=== PATIENT | male | born 1935 | race Caucasian/White ===

== ENCOUNTER → 2019-02-08 10:08 | Emergency (ER) | payer MEDICARE ==
--- OUTSIDE RECORDS SUMMARY | 2019-02-08 10:18 | XMS REPORT | Continuity of Care Document ---
:1935 External Reference #:[id number] Author Name Samara Ferreira NP Address [address] [place] [address] Care Team Providers Name Role Phone Osvaldo Arriaga M.D. Care Team Information [employer] Riveting Machine Operator Unavailable Payers Date Identification Numbers Payment Provider Subscriber Effective: 2015 Policy Number: [id number] [employer] Claims Olga Lidia Scott Group Number: [id number] [address] [address] Group Name: [facility] [address] Family History Date Family Member(s) Observation Comments : (age Father due to Pneumonia 92 Years) Father Non Contributory : (age Mother due to Stroke 87 Years) Mother Diabetes Children 6 Children . All healthy. Ages 40-50 as of 12/16. Siblings 4 First Brother due to Diabetes () First Brother Alcoholism First Sister Non Contributory : (age First Sister due to "Old Age" 91 Years) Second Sister Non Contributory Third Sister Non Contributory Grandchildren Grandchildren 10 : (age Paternal Grandfather due to "Old Age" 102 Years) : (age Paternal Grandmother due to Cancer stomach or laboratory equipment cleaner. 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 End: Unknown Smoker Didn't inhale. Cigarette Use Quit - Age 50 ETOH Use 7-14 Drinks A Week Tobacco Use Start: Unknown Patient is a former End: Unknown smoker Exercise Walking, Gardening, hiking Type/Frequency Golfing Allergies, Adverse Reactions, Alerts Description No Known Drug Allergies Medications Active Medications SIG Qnty Indications Ordering Date Provider Metformin HCL take one tablet by 180tabs Osvaldo Arriaga, 03/10/2016 1000mg mouth once a day M.D. Tablets Josesito Contour Blood Use Four Times 400units Osvaldo Arriaga, 01/06/2011 Glucose Test Strips Daily M.D. Strips Vitamin B12 1 po qd Torie Park, 03/28/2009 500mcg M.D., R.D. Tablets Vitamin D 1 po qd 180caps Torie Park, 03/28/2009 400Unit M.D., R.D. Capsules Aspirin 1 PO qd Osvaldo Arriaga, 05/01/2008 81mg Chewtabs M.D. [facility] Microlet test as directed, 200units Osvaldo Arriaga, 03/19/2008 1x A day M.D. Misc Multivitamins 1 PO qd 30tabs Osvaldo Arriaga, 12/08/2006 M.D. Tablets Januvia 1 by mouth every Unknown 100mg Tablets day Losartan Potassium 1 by mouth every Unknown day 25mg Tablets Viagra 1/2-1 tab before Unknown 100mg Tablets intercourse History Medications Erythromycin apply 1 application 3.500gm H00.015 Osvaldo Arriaga, 12/28/2018 - 5mg/GM into the lower M.D. 01/15/2019 Ointment eyelid of affected eye 4 times per day for 10 days for infection ( Do not fill Rx until patient calls ) Guaifenesin-Codeine 1-2 teaspoon every 4 240ml J06.9 Osvaldo Arriaga, 2015 - hours as needed M.D. 03/15/2017 100-10mg/5ML Syrup Zostavax perishable vaccine. 1units Z00.00 Osvaldo Arriaga, 03/10/2016 - bring immediately to M.D. 03/01/2018 45110Oby/0.65ML office for Suspension Rec administration unless administered at pharmacy Cialis 1/2 to 1 by mouth 12tabs F52.21 Osvaldo Arriaga, 03/10/2016 - 20mg Tablets every day as needed M.D. 03/17/2017 Augmentin 1 by mouth twice a 14tabs 682.8 Torie 12/22/2013 - 875-125mg day Vivian, 12/16/2015 Tablets Hortensia, R.D. Cialis 1/2 to 1 qd prn 30tabs Osvaldo Bart, 04/16/2009 - 20mg Tablets M.D. 12/16/2015 Ciadeepikas Take pill before 10tabs Torie 03/28/2009 - 10mg Tablets intercourse Vivian, 04/16/2009 Hortensia, R.DShad Dicloxacillin 1 po qid x 10 days 40caps Osvaldo Arriaga, 01/23/2009 - Sodium M.D. 12/16/2015 250mg Capsules Physical Therapy L3-4 herniated disc. 724.2 Osvaldo Arriaga, 04/04/2008 - M.D. 07/03/2008 Flexeril 1-2 tid prn muscle 30tabs 724.2 Alison Carvalho 04/04/2008 - 5mg spasm Matthew, 12/16/2015 Tablets M.DShad Metformin HCL 1 PO tid 90tabs Osvaldo Arriaga, 03/19/2008 - 500mg M.D. 03/10/2016 Tablets [facility] Contour testing qid 400units Osvaldo Arriaga, 03/19/2008 - Blood Glucose Test M.D. 01/06/2011 Strips Strips Levitra 1/2 to 1 qd prn 10tabs 302.70 Osvaldo Arriaga, 01/03/2008 - 20mg M.D. 12/16/2015 Tablets Physical Therapy evaluate and treat, Osvaldo Arriaga, 02/09/2007 - L3-4 hnp with left M.D. 05/10/2007 nerve root compression, L4-5 hnp with right compression, core strengthening exe Flexeril 1-2 tid prn 30tabs 729.5 Osvaldo Arriaga, 02/07/2007 - 5mg M.D. 01/03/2008 Tablets Vicodin 1/2-2 q4h prn 50tabs Osvaldo Arriaga, 02/02/2007 - 5mg;500 mg M.D. 05/03/2007 Tablets Neurontin 1 PO QHS prn Leg 30caps 355.1 Alison Carvalho 01/30/2007 - 100mg Pain , May Increase Matthew, 01/03/2008 Capsules To 1 PO tid prn M.D. Loprox 1% Cream Apply And Gently 30gm 110.3 Alison Carvalho 01/30/2007 - 1% Massage Into The Matthew, 01/03/2008 Cream Affected Area M.D. Twice Daily prn Cipro one po bid x 20 days 40tabs 601.0 Osvaldo Arriaga, 12/08/2006 - 500mg Tablets M.D. 01/30/2007 Uroxatral Extended 1 QHS 90tabs Osvaldo Arriaga, 12/08/2006 - Release M.D. 01/03/2008 10mg Tablets Colchicine Osvaldo Arriaga, 12/08/2006 - 0.6 M.D. 12/16/2015 Tablets Folic Acid 1 PO qd Osvaldo Arriaga, 12/08/2006 - Tablets M.D. 12/16/2015 Vitamin C 1 PO qd Osvaldo Arriaga, 12/08/2006 - 500mg M.D. 03/09/2016 Tablets Immunizations CPT Code Status Date Vaccine Lot # [id number] Given 05/24/2018 [place] [id number] Given 03/02/2018 Tdap (Adacel) [id number] 61922 Given 03/16/2017 Prevnar-13 Pneumococcal Conjugate Vaccine [id number] 19446 Given 03/16/2017 Influenza Vaccine High Dose PF [id number] 73531 Given 03/17/2011 Influenza Vaccine-Preservative Free 3 Yrs And [id number] Above 45591 Given 04/24/2010 Influenza Vaccine-Preservative Free 3 Yrs And [id number] Above 29908 Given 04/29/2008 Influenza Virus Vaccine, 3 Yrs And Above [id number] 23123 Given 01/03/2008 Pneumovax 23 (PPSV23) 65+ years or high risk 2 to 1960U 64 year old 78412 Given 01/03/2008 Td Age 7 to adult Decavac, Tenivac, Mass [id number] Biologics Vital Signs Date Vital Result Comment 01/15/2019 9:30am Weight 230.00 lb Weight 104.328 kg BP Systolic 130 mmHg BP Diastolic 70 mmHg Heart Rate 73 /min Body Temperature 99.4 F Respiratory Rate 16 /min O2 % BldC Oximetry 97 % 12/28/2018 8:46am Weight 236.00 lb Weight 107.050 kg BP Systolic 150 mmHg BP Diastolic 90 mmHg Heart Rate 60 /min Body Temperature 97.3 F Respiratory Rate 16 /min 03/02/2018 9:29am Weight 234.00 lb Weight 106.142 kg BP Systolic 143 mmHg BP Diastolic 82 mmHg Heart Rate 64 /min Body Temperature 97.9 F Respiratory Rate 16 /min Height 70 inches 5'10" BMI (Body Mass Index) 33.6 kg/m2 O2 % BldC Oximetry 98 % 12/08/2017 3:18pm Weight 233.00 lb Weight 105.689 kg BP Systolic 134 mmHg BP Diastolic 74 mmHg Heart Rate 64 /min Body Temperature 97.4 F Respiratory Rate 16 /min O2 % BldC Oximetry 98 % 03/16/2017 8:43am Weight 234.00 lb Weight 106.142 kg BP Systolic 130 mmHg BP Diastolic 82 mmHg Heart Rate 64 /min Body Temperature 96.8 F Respiratory Rate 16 /min Height 70 inches 5'10" BMI (Body Mass Index) 33.6 kg/m2 04/14/2016 12:04pm Weight 238.00 lb Weight 107.957 kg BP Systolic 138 mmHg BP Diastolic 74 mmHg Heart Rate 63 /min Body Temperature 98.0 F Respiratory Rate 18 /min O2 % BldC Oximetry 98 % 03/10/2016 9:27am Weight 240.00 lb Weight 108.864 kg BP Systolic 148 mmHg BP Diastolic 84 mmHg Heart Rate 60 /min irreg Body Temperature 97.5 F Respiratory Rate 18 /min O2 % BldC Oximetry 98 % 02/25/2016 9:31am Weight 242.00 lb Weight 109.771 kg BP Systolic 140 mmHg BP Diastolic 82 mmHg Heart Rate 62 /min Body Temperature 96.5 F Respiratory Rate 17 /min O2 % BldC Oximetry 98 % 12/17/2015 3:06pm Weight 242.00 lb Weight 109.771 kg BP Systolic 134 mmHg BP Diastolic 74 mmHg Heart Rate 80 /min Body Temperature 96.0 F Height 70.5 inches 5'10.50" BMI (Body Mass Index) 34.2 kg/m2 12/22/2013 10:27am Weight 244.00 lb Weight 110.678 kg BP Systolic 148 mmHg BP Diastolic 90 mmHg Heart Rate 60 /min Body Temperature 95.5 F 03/17/2011 9:46am Weight 251.00 lb Weight 113.854 kg BP Systolic 136 mmHg BP Diastolic 70 mmHg Heart Rate 68 /min Body Temperature 96.8 F 04/24/2010 11:11am Weight 240.00 lb Weight 108.864 kg BP Systolic 130 mmHg BP Diastolic 72 mmHg Heart Rate 64 /min Height 70.50 inches 5'10.50" BMI (Body Mass Index) 33.9 kg/m2 01/29/2010 10:48am Weight 244.00 lb Weight 110.678 kg BP Systolic 134 mmHg BP Diastolic 70 mmHg Heart Rate 64 /min 03/28/2009 9:12am Weight 242.00 lb Weight 109.771 kg BP Systolic 122 mmHg BP Diastolic 76 mmHg Heart Rate 68 /min Height 70.5 inches 5'10.50" BMI (Body Mass Index) 34.2 kg/m2 01/23/2009 10:48am Weight 242.00 lb Weight 109.771 kg BP Systolic 130 mmHg BP Diastolic 72 mmHg Heart Rate 64 /min 05/01/2008 11:38am Weight 240.00 lb Weight 108.864 kg BP Systolic 120 mmHg BP Diastolic 70 mmHg Heart Rate 72 /min Height 71 inches 5'11" BMI (Body Mass Index) 33.5 kg/m2 04/04/2008 9:31am Weight 245.00 lb Weight 111.132 kg BP Systolic 126 mmHg BP Diastolic 72 mmHg Heart Rate 78 /min Body Temperature 97.6 F Height 71 inches 5'11" BMI (Body Mass Index) 34.2 kg/m2 03/19/2008 9:27am Weight 244.00 lb Weight 110.678 kg BP Systolic 130 mmHg BP Diastolic 70 mmHg Heart Rate 64 /min Height 71 inches 5'11" BMI (Body Mass Index) 34.0 kg/m2 02/06/2008 9:49am Weight 246.00 lb Weight 111.586 kg BP Systolic 136 mmHg BP Diastolic 70 mmHg Heart Rate 50 /min Height 71 inches 5'11" BMI (Body Mass Index) 34.3 kg/m2 01/03/2008 1:15pm Weight 247.00 lb Weight 112.039 kg BP Systolic 150 mmHg repeat 180/80 BP Diastolic 78 mmHg repeat 180/80 Heart Rate 72 /min Height 71 inches 5'11" BMI (Body Mass Index) 34.4 kg/m2 02/28/2007 3:39pm Weight 246.00 lb Weight 111.586 kg BP Systolic 120 mmHg BP Diastolic 78 mmHg Heart Rate 80 /min Height 71 inches 5'11" BMI (Body Mass Index) 34.3 kg/m2 02/07/2007 3:11pm Weight 248.00 lb Weight 112.493 kg BP Systolic 140 mmHg BP Diastolic 70 mmHg Heart Rate 60 /min Height 71 inches 5'11" BMI (Body Mass Index) 34.6 kg/m2 02/06/2007 11:34am Weight 249.00 lb Weight 112.946 kg BP Systolic 120 mmHg BP Diastolic 80 mmHg Heart Rate 80 /min Respiratory Rate 18 /min Height 71 inches 5'11" BMI (Body Mass Index) 34.7 kg/m2 01/30/2007 3:49pm Weight 249.00 lb Weight 112.946 kg BP Systolic 130 mmHg BP Diastolic 80 mmHg Heart Rate 80 /min Respiratory Rate 18 /min Height 71 inches 5'11" BMI (Body Mass Index) 34.7 kg/m2 12/08/2006 2:02pm Weight 145.50 lb Weight 65.999 kg BP Systolic 130 mmHg BP Diastolic 70 mmHg Heart Rate 70 /min Height 71 inches 5'11" BMI (Body Mass Index) 20.3 kg/m2 Results Test Date Facility Test Result H/L Range Note Urine DIP 01/15/2019 In House Lab Leukocytes NEG Neg (607)- - Urine Nitrites NEG Neg Urobilinogen NEG Norm Total Protein Urine NEG Neg Urine pH 5 5-6 Urine Blood NEG Neg Specific [place] 1.01 1.01-1.02 Urine Ketones NEG Neg Urine Bilirubin NEG Neg Urine Glucose NORM Norm Laboratory test 12/01/2017 [facility] Hemoglobin A1c 6.8 % High 4.0-5.6 1 finding [phone] (Glyco HGB) Lipid Profile 12/01/2017 [facility] Triglycerides 72 2 (Trig/Chol/HDL) [phone] mg/dL Cholesterol 133 mg/dL 3 HDL Cholesterol 39.3 mg/dL 4 LDL Cholesterol 79 mg/dL 5 Laboratory test 12/01/2017 [facility] Uric Acid 9.1 mg/dL High 4.4-7.6 6 finding [phone] Basic Metabolic 12/01/2017 [facility] Sodium 137 mmol /L Low 139-145 Panel [phone] Chloride 103 mmol/L N 101-111 Co2 Carbon Dioxide 28 mmol/L N 22-32 Glucose 163 mg/dL High 70-100 Blood Urea Nitrogen 18 mg/dL N 6-24 Creatinine 1.24 mg/dL High 0.67-1.17 BUN/Creatinine Ratio 14.5 N 8-20 Calcium 9.2 mg/dL N 8.6-10.3 Egfr Non- 56.0 >60 Egfr 72.0 >60 7 Potassium 5.3 mmol/L High 3.5-5.0 Anion Gap 6 mmol/L N 2-11 Urine Microalbumin 03/16/2017 [facility] Urine Creatinine 78.80 mg/dL N Random [phone] Ur Microalbumin (mg/L) < 15.0 mg/L N Urine Microalbumin/Creatinine TNP ug/mg N <31 8 Urine DIP 03/16/2017 In House Lab Leukocytes neg Neg (607)- - Urine Nitrites neg Neg Urobilinogen norm Norm Total Protein, Urine neg Neg Urine pH 5 5-6 Urine Blood neg Neg Specific [place] 1.015 1.01-1.02 Urine Ketones neg Neg Urine Bilirubin neg Neg Urine Glucose norm Norm Laboratory test 03/16/2017 [facility] Hemoglobin A1c 7.3 % High Less than 9 finding [phone] (Glyco HGB) 6.0 CBC No Diff 03/16/2017 [facility] White Blood 7.0 N 3.5-10.8 [phone] Count 10^3/uL Red Blood Count 4.52 10^6/uL N 4.0-5.4 Hemoglobin 14.5 g/dL N 14.0-18.0 Hematocrit 42 % N 42-52 Mean Corpuscular Volume 94 fL N 80-94 Mean Corpuscular Hemoglobin 32 pg High 27-31 Mean Corpuscular HGB Conc 34 g/dL N 31-36 Red Cell Distribution Width 13 % N 10.5-15 Platelet Count 215 10^3/uL N 150-450 Mean Platelet Volume 9 um3 N 7.4-10.4 Comp Metabolic Panel 03/16/2017 [facility] Sodium 139 mmol/L N 133-145 [phone] Potassium 5.4 mmol/L High 3.5-5.0 Chloride 104 mmol/L N 101-111 Co2 Carbon Dioxide 28 mmol/L N 22-32 Anion Gap 7 mmol/L N 2-11 Glucose 167 mg/dL High 70-100 Blood Urea Nitrogen 16 mg/dL N 6-24 Creatinine 1.24 mg/dL High 0.67-1.17 BUN/Creatinine Ratio 12.9 N 8-20 Calcium 9.8 mg/dL N 8.6-10.3 Total Protein 7.4 g/dL N 6.4-8.9 Albumin 4.4 g/dL N 3.2-5.2 Globulin 3.0 g/dL N 2-4 Albumin/Globulin Ratio 1.5 N 1-3 Total Bilirubin 0.80 mg/dL N 0.2-1.0 Alkaline Phosphatase 41 U/L N 34-104 Alt 18 U/L N 7-52 Ast 13 U/L N 13-39 Egfr Non- 56.0 N >60 Egfr 72.0 N >60 10 Laboratory test 03/16/2017 [facility] Uric Acid 8.6 mg/dL High 4.4-7.6 11 finding [phone] Erythrocyte Sed Rate 13 mm/Hr N 0-40 12 C Reactive Protein 1.30 mg/L N < 5.00 13 Testosterone Total 251.44 ng/dL N 240-950 14 Vitamin B12 421 pg/mL N 180-914 15 Basic Metabolic 03/09/2017 [facility] Sodium 137 mmol /L N 133-145 Panel [phone] Potassium 5.3 mmol/L High 3.5-5.0 Chloride 103 mmol/L N 101-111 Co2 Carbon Dioxide 28 mmol/L N 22-32 Anion Gap 6 mmol/L N 2-11 Glucose 168 mg/dL High 70-100 Blood Urea Nitrogen 19 mg/dL N 6-24 Creatinine 1.24 mg/dL High 0.67-1.17 BUN/Creatinine Ratio 15.3 N 8-20 Calcium 9.4 mg/dL N 8.6-10.3 Egfr Non- 56.0 N >60 Egfr 72.0 N >60 16 Urine DIP 03/10/2016 In House Lab Leukocytes neg Neg (607)- - Urine Nitrites neg Neg Urobilinogen norm Norm Total Protein, Urine neg Neg Urine pH 5 5-6 Urine Blood neg Neg Specific [place] 1.010 1.01-1.02 Urine Ketones neg Neg Urine Bilirubin neg Neg Urine Glucose norm Norm Lipid Profile 01/09/2016 [facility] Triglycerides 77 mg/dL N 17 (Trig/Chol/HDL) [phone] Cholesterol 142 mg/dL N 18 HDL Cholesterol 41.1 mg/dL N 19 LDL Cholesterol 86 mg/dL N 20 Comp Metabolic Panel 01/09/2016 [facility] Sodium 136 mmol/L N 133-145 [phone] Potassium 5.5 mmol/L High 3.5-5.0 Chloride 104 mmol/L N 101-111 Co2 Carbon Dioxide 27 mmol/L N 22-32 Anion Gap 5 mmol/L N 2-11 Glucose 147 mg/dL High 70-100 Blood Urea Nitrogen 19 mg/dL N 6-24 Creatinine 1.25 mg/dL High 0.67-1.17 BUN/Creatinine Ratio 15.2 N 8-20 Calcium 9.3 mg/dL N 8.6-10.3 Total Protein 7.0 g/dL N 6.4-8.9 Albumin 4.2 g/dL N 3.2-5.2 Globulin 2.8 g/dL N 2-4 Albumin/Globulin Ratio 1.5 N 1-3 Total Bilirubin 0.60 mg/dL N 0.2-1.0 Alkaline Phosphatase 35 U/L N 34-104 Alt 23 U/L N 7-52 Ast 15 U/L N 13-39 Egfr Non- 55.6 N >60 Egfr 71.5 N >60 21 Laboratory test 01/09/2016 [facility] Hemoglobin A1c 7.3 % High Less than 22 finding [phone] (Glyco HGB) 6.0 PSA Screening 0.580 ng/mL N 0-4.000 23 Uric Acid 8.0 mg/dL High 4.4-7.6 24 Hla B27 01/09/2016 [facility] Hla B27 Positive N 25 [phone] Hla B27 Interp See Comment N 26 Lipid Profile 01/26/2012 [facility] Triglyceride 54 mg/dL 40-200 (Trig/Chol/HDL) [phone] Cholesterol 141 mg/dL Less Than 200 27 High Density Lipoprotein 38 mg/dL Low 40-60 28 Cholesterol/HDL Ratio 3.71 AVERAGE 1-4.97 Low Density Lipoprotein 92 mg/dL Less Than 100 29 Comp Metabolic Panel 01/26/2012 [facility] Sodium 135 mmol/L 135-145 [phone] Potassium 4.5 mmol/L 3.5-5.0 Chloride 106 mmol/L 101-111 Co2 (Carbon Dioxide) 23.0 mmol/L 22-32 Anion Gap 6.0 mmol/L 2-11 30 Glucose 125 mg/dL High 70-100 BUN 17 mg/dL 6-24 Creatinine 1.2 mg/dL 0.50-1.40 One Over Creatinine 0.83 BUN/Creatinine Ratio 14.2 8-20 Calcium 8.8 mg/dL 8.1-9.9 Total Protein 6.4 GM/DL 6.2-8.1 Albumin 3.7 GM/DL 3.2-5.2 Globulin 2.7 GM/DL 2-4 Albumin/Globulin Ratio 1.4 1-3 Bilirubin Total 0.8 mg/dL 0.4-1.5 31 Alkaline Phosphatase 39 U/L 39-117 Alt (SGPT) 21 U/L 17-63 Ast (Sgot) 17 U/L 12-42 eGFR Non- 58.9 > 60 eGFR 75.7 > 60 32 Laboratory test 01/26/2012 [facility] Hemoglobin A1c 6.0 % Less Than 33 finding [phone] 6.0 CBC No Diff 10/26/2010 [facility] White Blood 6.7 CUMM 4.8-10.8 [phone] Count Red Cell Count 4.27 CUMM Low 4.6-6.2 Hemoglobin 13.7 g/dL Low 14.0-18.0 Hematocrit 40 % Low 42-52 Mean Corpuscular Volume 94 um3 80-94 Mean Corpuscular Hemoglob 32 pg High 27-31 Mean Corpuscular HGB Cone 34 g/dL 32-36 Redcell Distribution WDTH 14 % 10.5-15 Platelet Count 179 CUMM 150-450 Mean Platelet Volume 8.0 um3 7.4-10.4 Comp Metabolic Panel 10/26/2010 [facility] Sodium 138 mmol/L 135-145 [phone] Potassium 4.2 mmol/L 3.5-5.0 Chloride 106 mmol/L 101-111 Co2 (Carbon Dioxide) 27.0 mmol/L 22-32 Anion Gap 5.0 mmol/L 2-11 34 Glucose 106 mg/dL High 70-100 BUN 22 mg/dL 6-24 Creatinine 1.10 mg/dL 0.50-1.40 One Over Creatinine 0.90 BUN/Creatinine Ratio 20.0 8-20 Calcium 9.2 mg/dL 8.1-9.9 Total Protein 6.8 GM/DL 6.2-8.1 Albumin 3.9 GM/DL 3.2-5.2 Globulin 2.9 GM/DL 2-4 Albumin/Globulin Ratio 1.3 1-3 Bilirubin Total 1.0 mg/dL 0.4-1.5 35 Alkaline Phosphatase 34 U/L Low 39-117 Alt (SGPT) 18 U/L 17-63 Ast (Sgot) 22 U/L 12-42 eGFR Non- 65.4 > 60 eGFR 84.2 > 60 36 Laboratory test 04/24/2010 [facility] Uric Acid 8.0 mg/dL High 2.6-7.2 finding [phone] Hemoglobin A1c 7.0 % High Less Than 6.0 37 Basic Metabolic 04/24/2010 [facility] Sodium 138 mmol /L 135-145 Panel [phone] Potassium 4.6 mmol/L 3.5-5.0 Chloride 104 mmol/L 101-111 Co2 (Carbon Dioxide) 28.0 mmol/L 22-32 Anion Gap 6.0 mmol/L 2-11 38 Glucose 107 mg/dL High 70-100 39 BUN 14 mg/dL 6-24 Creatinine 1.20 mg/dL 0.50-1.40 One Over Creatinine 0.80 BUN/Creatinine Ratio 11.7 8-20 Calcium 9.4 mg/dL 8.1-9.9 eGFR Non- 62.9 > 60 eGFR 76.1 > 60 40 Lipid Profile 04/24/2010 [facility] Triglyceride 80 mg/dL 40-200 (Trig/Chol/HDL) [phone] Cholesterol 157 mg/dL Less Than 200 41 High Density Lipoprotein 40 mg/dL 40-60 42 Cholesterol/HDL Ratio 3.93 AVERAGE 1-4.97 Low Density Lipoprotein 101 mg/dL High Less Than 100 43 Urine DIP 04/24/2010 In House Lab Leukocytes NEG Neg (607)- - Urine Nitrites NEG Neg Urine pH 5 5-6 Total Protein, Urine NEG Neg Urine Glucose NORM Norm Urine Ketones NEG Neg Urobilinogen NORM Norm Urine Bilirubin NEG Neg Urine Blood TRACE Neg Specific [place] NA Low 1.01-1.02 Laboratory test 01/21/2010 [facility] Hemoglobin A1c 6.6 % High Less Than 44 finding [phone] 6.0 Lipid Profile 01/21/2010 [facility] Triglyceride 56 mg/dL 40-200 (Trig/Chol/HDL) [phone] Cholesterol 129 mg/dL Less Than 200 45 High Density Lipoprotein 32 mg/dL Low 40-60 46 Cholesterol/HDL Ratio 4.03 AVERAGE 1-4.97 Low Density Lipoprotein 86 mg/dL Less Than 100 47 Comp Metabolic Panel 01/21/2010 [facility] Sodium 136 mmol/L 135-145 [phone] Potassium 4.9 mmol/L 3.5-5.0 Chloride 105 mmol/L 101-111 Co2 (Carbon Dioxide) 26.0 mmol/L 22-32 Anion Gap 5.0 mmol/L 2-11 48 Glucose 105 mg/dL High 70-100 49 BUN 18 mg/dL 6-24 Creatinine 1.20 mg/dL 0.50-1.40 One Over Creatinine 0.80 BUN/Creatinine Ratio 15.0 8-20 Calcium 9.1 mg/dL 8.1-9.9 50 Total Protein 7.2 GM/DL 6.2-8.1 Albumin 4.1 GM/DL 3.2-5.2 Globulin 3.1 GM/DL 2-4 Albumin/Globulin Ratio 1.3 1-3 Bilirubin Total 1.2 mg/dL 0.4-1.5 51 Alkaline Phosphatase 35 U/L Low 39-117 Alt (SGPT) 22 U/L 17-63 Ast (Sgot) 18 U/L 12-42 eGFR Non- 62.9 > 60 eGFR 76.1 > 60 52 Laboratory test 01/21/2010 [facility] Vitamin B12 380 pg/mL 180-914 finding [phone] TSH 1.84 MIU/ML 0.34-5.60 PSA Screening 0.54 NG/ML 0-4 53 Lipid Profile 03/28/2009 [facility] Triglyceride 76 mg/dL 40-200 (Trig/Chol/HDL) [phone] Cholesterol 146 mg/dL Less Than 200 54 High Density Lipoprotein 37 mg/dL Low 40-60 55 Cholesterol/HDL Ratio 3.95 AVERAGE 1-4.97 Low Density Lipoprotein 94 mg/dL Less Than 100 56 Laboratory test 03/28/2009 [facility] Hemoglobin A1c 6.8 % High Less Than 57 finding [phone] 6.0 Basic Metabolic 03/28/2009 [facility] Sodium 136 135-145 Panel [phone] mmol/L Potassium 4.7 mmol/L 3.5-5.0 Chloride 106 mmol/L 101-111 Co2 (Carbon Dioxide) 24.0 mmol/L 22-32 Anion Gap 6.0 mmol/L 2-11 58 Glucose 121 mg/dL High 70-100 59 BUN 16 mg/dL 6-24 Creatinine 1.20 mg/dL 0.50-1.40 One Over Creatinine 0.80 BUN/Creatinine Ratio 13.3 8-20 Calcium 9.2 mg/dL 8.1-9.9 60 eGFR Non- 63.1 > 60 eGFR 76.3 > 60 61 Urine DIP 03/28/2009 In House Lab Leukocytes NEG Neg (607)- - Urine Nitrites NEG Neg Urine pH 5 5-6 Total Protein, Urine NEG Neg Urine Glucose NORM Norm Urine Ketones NEG Neg Urobilinogen NORM Norm Urine Bilirubin NEG Neg Urine Blood NEG Neg Specific [place] N/A Low 1.01-1.02 Laboratory test 04/29/2008 [facility] Hemoglobin A1c 6.8 % High <6.0 62 finding [phone] Basic Metabolic 04/29/2008 [facility] Sodium 138 135-145 Panel [phone] mmol/L Potassium 4.9 mmol/L 3.5-5.0 Chloride 104 mmol/L 101-111 Co2 (Carbon Dioxide) 26.0 mmol/L 22-32 Anion Gap 8.0 mmol/L 2-11 63 Glucose 122 mg/dL High 70-100 64 BUN 17 mg/dL 6-24 Creatinine 1.3 mg/dL 0.5-1.4 One Over Creatinine 0.76 BUN/Creatinine Ratio 13.1 8-20 Calcium 9.2 mg/dL 8.1-9.9 65 Microalbumin Random 04/29/2008 [facility] Microalbumin (MG/L) 3.0 mg/L Urine [phone] Urine Creatinine 64.8 mg/dL [place]/Creatinine Ratio 4.6 UG/MG Less Than 30 66 Basic Metabolic 02/07/2008 [facility] Sodium 139 mmol /L 135-145 Panel [phone] Potassium 4.6 mmol/L 3.5-5.0 Chloride 107 mmol/L 101-111 Co2 (Carbon Dioxide) 26.0 mmol/L 22-32 Anion Gap 6.0 mmol/L 2-11 67 Glucose 176 mg/dL High 70-105 BUN 16 mg/dL 6-24 Creatinine 1.1 mg/dL 0.5-1.4 One Over Creatinine 0.90 BUN/Creatinine Ratio 14.5 8-20 Calcium 8.6 mg/dL 8.1-9.9 68 Laboratory 02/07/2008 [facility] Hemoglobin 7.7 % High <6.0 69 test finding [phone] A1c Surgical 01/24/2008 [facility] Surgical 70 Pathology [phone] Pathology ----- <SEE NOTE> Lyme Western 01/18/2008 [facility] Lyme Disease Negative Negative 71, Blot Specialty [phone] Igg Western 72 Blot Lyme Disease Igm Western Blot Negative Negative 73 Lyme Disease Interpretation . () 74 Laboratory test 01/18/2008 [facility] TSH 1.93 MIU/ ML 0.34-5.60 finding [phone] Lipid Profile 01/18/2008 [facility] Triglyceride 83 mg/dL 40-200 (Trig/Chol/HDL) [phone] Cholesterol 133 mg/dL Less Than 200 75 High Density Lipoprotein 32 mg/dL Low 40-60 76 Cholesterol/HDL Ratio 4.16 AVERAGE 1-4.97 Low Density Lipoprotein 84 mg/dL Less Than 100 77 Comp Metabolic Panel 01/18/2008 [facility] Sodium 137 mmol/L 135-145 [phone] Potassium 4.5 mmol/L 3.5-5.0 Chloride 108 mmol/L 101-111 Co2 (Carbon Dioxide) 27.0 mmol/L 22-32 Anion Gap 2.0 mmol/L 2-11 78 Glucose 170 mg/dL High 70-105 BUN 15 mg/dL 6-24 Creatinine 1.3 mg/dL 0.5-1.4 One Over Creatinine 0.76 BUN/Creatinine Ratio 11.5 8-20 Calcium 8.9 mg/dL 8.1-9.9 79 Total Protein 6.9 GM/DL 6.2-8.1 Albumin 3.8 GM/DL 3.2-5.2 Globulin 3.1 GM/DL 2-4 Albumin/Globulin Ratio 1.2 1-3 Bilirubin Total 0.9 mg/dL 0.4-1.5 Alkaline Phosphatase 46 U/L 39-117 Alt (SGPT) 27 U/L 17-63 Ast (Sgot) 18 U/L 12-42 CBC With 01/18/2008 [facility] White Blood 6.7 CUMM 4.8-10.8 Electronic Diff [phone] Count Red Cell Count 4.53 CUMM Low 4.6-6.2 Hemoglobin 14.5 g/dL 14.0-18.0 Hematocrit 41 % Low 42-52 Mean Corpuscular Volume 92 um3 80-94 Mean Corpuscular Hemoglob 32 pg High 27-31 Mean Corpuscular HGB Cone 35 g/dL 32-36 Redcell Distribution WDTH 13 % 10.5-15 Platelet Count 227 CUMM 150-450 Mean Platelet Volume 7.9 um3 7.4-10.4 Gran % 54.7 % 38-83 Lymph % 34.3 % 20-45 Mononuclear % 6.6 % 1-9 Eosinophil % 3.9 % 0-6 Basophil % 0.5 % 0-2 Abs Lymphs 2.3 1.0-4.8 Abs Mononuclear 0.4 0-0.8 Absolute Neutrophil Count 3.7 1.5-7.7 Abs Eosinophils 0.3 0-0.6 Abs Basophils 0 0-0.2 Laboratory test 12/08/2007 [facility] PSA,Diagnostic 0.46 NG/ML 0-4 80 finding [phone] Surgical 01/24/2007 [facility] Surgical Pathology --- ------- 81 Pathology [phone] ------ <SEE NOTE> 1 Therapeutic target for the treatment of diabetes mellitus patients is <7% HBA1C, and in selective patients <6.0%. Please refer to [place] [employer] diabetic care guidelines for further information. 2 Desirable: <150 Borderline High: 150-199 High: 200-499 Very High: >500 3 Desirable: <200 Borderline High: 200-239 High: >239 4 Low: <40 Desirable: 40-60 High: >60 5 Desirable: <100 Near Optimal: 100-129 Borderline High: 130-159 High: 160-189 Very High: >189 6 [id number] FASTING 7 Because ethnic data is not always readily available, this report includes an eGFR for both -Americans and non- Americans. The National Kidney Disease Education Program (NKDEP) does not endorse the use of the MDRD equation for patients that are not between the ages of 18 and 70, are , have extremes of body size, muscle mass, or nutritional status, or are non- or non-. According to the National Kidney Foundation, irrespective of diagnosis, the stage of the disease is based on the level of kidney function: Stage Description GFR(mL/min/1.73 m(2)) 1 Kidney damage with normal or decreased GFR 90 2 Kidney damage with mild decrease in GFR 60-89 3 Moderate decrease in GFR 30-59 4 Severe decrease in GFR 15-29 5 Kidney failure <15 (or dialysis) 8 Unable to calculate due to low microalbumin 9 Therapeutic target for the treatment of diabetes Mellitus patients is <7% HBA1C, and in selective patients <6.0%.Please refer to [place] [employer] Diabetic care guidelines for further information. 10 Because ethnic data is not always readily available, this report includes an eGFR for both -Americans and non- Americans. The National Kidney Disease Education Program (NKDEP) does not endorse the use of the MDRD equation for patients that are not between the ages of 18 and 70, are , have extremes of body size, muscle mass, or nutritional status, or are non- or non-. According to the National Kidney Foundation, irrespective of diagnosis, the stage of the disease is based on the level of kidney function: Stage Description GFR(mL/min/1.73 m(2)) 1 Kidney damage with normal or decreased GFR 90 2 Kidney damage with mild decrease in GFR 60-89 3 Moderate decrease in GFR 30-59 4 Severe decrease in GFR 15-29 5 Kidney failure <15 (or dialysis) 11 [id number] 12 [id number] 13 Acute inflammation: >10.00 14 [id number] 15 Normal Range 180 to 914 Indeterminate Range 145 to 180 Deficient Range <145 16 Because ethnic data is not always readily available, this report includes an eGFR for both -Americans and non- Americans. The National Kidney Disease Education Program (NKDEP) does not endorse the use of the MDRD equation for patients that are not between the ages of 18 and 70, are , have extremes of body size, muscle mass, or nutritional status, or are non- or non-. According to the National Kidney Foundation, irrespective of diagnosis, the stage of the disease is based on the level of kidney function: Stage Description GFR(mL/min/1.73 m(2)) 1 Kidney damage with normal or decreased GFR 90 2 Kidney damage with mild decrease in GFR 60-89 3 Moderate decrease in GFR 30-59 4 Severe decrease in GFR 15-29 5 Kidney failure <15 (or dialysis) 17 Desirable <150 Borderline high 150-199 High 200-499 Very High >500 18 Desirable <200 Borderline high 200-239 High >239 19 Low <40 Desirable: 40-60 High: >60 20 Desirable: <100 mg/dL Near Optimal: 100-129 mg/dL Borderline High: 130-159 mg/dL High: 160-189 mg/dL Very High: >189 mg/dL 21 Because ethnic data is not always readily available, this report includes an eGFR for both -Americans and non- Americans. The National Kidney Disease Education Program (NKDEP) does not endorse the use of the MDRD equation for patients that are not between the ages of 18 and 70, are , have extremes of body size, muscle mass, or nutritional status, or are non- or non-. According to the National Kidney Foundation, irrespective of diagnosis, the stage of the disease is based on the level of kidney function: Stage Description GFR(mL/min/1.73 m(2)) 1 Kidney damage with normal or decreased GFR 90 2 Kidney damage with mild decrease in GFR 60-89 3 Moderate decrease in GFR 30-59 4 Severe decrease in GFR 15-29 5 Kidney failure <15 (or dialysis) 22 Therapeutic target for the treatment of diabetes Mellitus patients is <7% HBA1C, and in selective patients <6.0%.Please refer to [place] [employer] Diabetic care guidelines for further information. 23 Serum levels of PSA measured using the [employer] DXI Hybritech immunoassay should not be interpreted as absolute evidence of the presence or absence of disease. The PSA value should be used in conjunction with other pertinent clinical diagnostic procedures. A PSA value in the range of 0.1 to 0.6 ng/ml is indeterminate if being used as an indicator of recurrent or residual disease. The values obtained with different assay methods or kits cannot be used interchangeably. 24 [id number] FASTING 25 REFERENCE VALUE Not Applicable 26 HLA-B27 antigen was detected. Approximately 8% of the normal population carries the HLA-B27 antigen. HLA-B27 is present in approximately 89% of patients with ankylosing spondylitis, 79% of patients with Heladio's syndrome and 42% of patients with juvenile rheumatoid arthritis. However, lacking other data, it is not diagnostic for these disorders. This test does not differentiate B27 alleles. i.e. B*27:05, B*27:06, etc. ADDITIONAL INFORMATION Method: Flow Cytometry Performing Laboratory CLIA# [id number] Test Performed by: [address] [address] Project Safety Manager: Dean Lee II, M.D., Ph.D. 27 CHOLESTEROL INTERPRETATION: Desirable: Less than 200 MG/DL Borderline-High Risk: 200-239 MG/DL High-Risk: 240 MG/DL and over 28 HDL INTERPRETATION: Undesirable: High Risk: Less than 40 MG/DL Desirable: Low Risk: Greater than 60 MG/DL 29 LDL INTERPRETATION: Low Risk Optimal Level: LDL Less than 100 MG/DL Near or Above Optimal: LDL 100-129 MG/DL Borderline High Risk: LDL 130-159 MG/DL High Risk: LDL 160-189 MG/DL Very High Risk: LDL Greater than 189 MG/DL 30 Anion gap measurement may be of limited value in the presence of any alkalosis, especially in a combined acid base disorder. . 31 A metabolite of Naproxen, O-desmethylnaproxen, has been shown to interfere with the Jendrassik-Corey method for measuring total bilirubin. Samples from patients who have taken Naproxen have shown spurious elevation in total bilirubin levels. 32 Because ethnic data is not always readily available, this report includes an eGFR for both -Americans and non- Americans. The National Kidney Disease Education Program (NKDEP) does not endorse the use of the MDRD equation for patients that are not between the ages of 18 and 70, are , have extremes of body size, muscle mass, or nutritional status, or are non- or non-. According to the National Kidney Foundation, irrespective of diagnosis, the stage of the disease is based on the level of kidney function: Stage Description GFR(mL/min/1.73 m(2)) 1 Kidney damage with normal or decreased GFR 90 2 Kidney damage with mild decrease in GFR 60-89 3 Moderate decrease in GFR 30-59 4 Severe decrease in GFR 15-29 5 Kidney failure <15 (or dialysis) 33 THERAPEUTIC TARGET FOR THE TREATMENT OF DIABETES MELLITUS PATIENTS IS <7% HBA1C, AND IN SELECTIVE PATIENTS <6.0%. PLEASE REFER TO [place] [employer] DIABETIC CARE GUIDELINES FOR FURTHER INFORMATION. 34 Anion gap measurement may be of limited value in the presence of any alkalosis, especially in a combined acid base disorder. . 35 A metabolite of Naproxen, O-desmethylnaproxen, has been shown to interfere with the Jendrassik-Corey method for measuring total bilirubin. Samples from patients who have taken Naproxen have shown spurious elevation in total bilirubin levels. 36 Because ethnic data is not always readily available, this report includes an eGFR for both -Americans and non- Americans. The National Kidney Disease Education Program (NKDEP) does not endorse the use of the MDRD equation for patients that are not between the ages of 18 and 70, are , have extremes of body size, muscle mass, or nutritional status, or are non- or non-. According to the National Kidney Foundation, irrespective of diagnosis, the stage of the disease is based on the level of kidney function: Stage Description GFR(mL/min/1.73 m(2)) 1 Kidney damage with normal or decreased GFR 90 2 Kidney damage with mild decrease in GFR 60-89 3 Moderate decrease in GFR 30-59 4 Severe decrease in GFR 15-29 5 Kidney failure <15 (or dialysis) 37 THERAPEUTIC TARGET FOR THE TREATMENT OF DIABETES MELLITUS PATIENTS IS <7% HBA1C, AND IN SELECTIVE PATIENTS <6.0%. PLEASE REFER TO [place] [place] [employer] DIABETIC CARE GUIDELINES FOR FURTHER INFORMATION. 38 Anion gap measurement may be of limited value in the presence of any alkalosis, especially in a combined acid base disorder. . 39 Note change in reference range as of 02/29/08. The change was based on recommendations from the [place] [employer]. 40 Because ethnic data is not always readily available, this report includes an eGFR for both -Americans and non- Americans. The National Kidney Disease Education Program (NKDEP) does not endorse the use of the MDRD equation for patients that are not between the ages of 18 and 70, are , have extremes of body size, muscle mass, or nutritional status, or are non- or non-. According to the National Kidney Foundation, irrespective of diagnosis, the stage of the disease is based on the level of kidney function: Stage Description GFR(mL/min/1.73 m(2)) 1 Kidney damage with normal or decreased GFR 90 2 Kidney damage with mild decrease in GFR 60-89 3 Moderate decrease in GFR 30-59 4 Severe decrease in GFR 15-29 5 Kidney failure <15 (or dialysis) 41 CHOLESTEROL INTERPRETATION: Desirable: Less than 200 MG/DL Borderline-High Risk: 200-239 MG/DL High-Risk: 240 MG/DL and over 42 HDL INTERPRETATION: Undesirable: High Risk: Less than 40 MG/DL Desirable: Low Risk: Greater than 60 MG/DL 43 LDL INTERPRETATION: Low Risk Optimal Level: LDL Less than 100 MG/DL Near or Above Optimal: LDL 100-129 MG/DL Borderline High Risk: LDL 130-159 MG/DL High Risk: LDL 160-189 MG/DL Very High Risk: LDL Greater than 189 MG/DL 44 THERAPEUTIC TARGET FOR THE TREATMENT OF DIABETES MELLITUS PATIENTS IS <7% HBA1C, AND IN SELECTIVE PATIENTS <6.0%. PLEASE REFER TO [employer] [place] DIABETIC CARE GUIDELINES FOR FURTHER INFORMATION. 45 CHOLESTEROL INTERPRETATION: Desirable: Less than 200 MG/DL Borderline-High Risk: 200-239 MG/DL High-Risk: 240 MG/DL and over 46 HDL INTERPRETATION: Undesirable: High Risk: Less than 40 MG/DL Desirable: Low Risk: Greater than 60 MG/DL 47 LDL INTERPRETATION: Low Risk Optimal Level: LDL Less than 100 MG/DL Near or Above Optimal: LDL 100-129 MG/DL Borderline High Risk: LDL 130-159 MG/DL High Risk: LDL 160-189 MG/DL Very High Risk: LDL Greater than 189 MG/DL 48 Anion gap measurement may be of limited value in the presence of any alkalosis, especially in a combined acid base disorder. . 49 Note change in reference range as of 02/29/08. The change was based on recommendations from the [place] [employer]. 50 Please note change in reference range effective 07 . 51 A metabolite of Naproxen, O-desmethylnaproxen, has been shown to interfere with the Jendrassik-[place] method for measuring total bilirubin. Samples from patients who have taken Naproxen have shown spurious elevation in total bilirubin levels. 52 Because ethnic data is not always readily available, this report includes an eGFR for both -Americans and non- Americans. The National Kidney Disease Education Program (NKDEP) does not endorse the use of the MDRD equation for patients that are not between the ages of 18 and 70, are , have extremes of body size, muscle mass, or nutritional status, or are non- or non-. According to the National Kidney Foundation, irrespective of diagnosis, the stage of the disease is based on the level of kidney function: Stage Description GFR(mL/min/1.73 m(2)) 1 Kidney damage with normal or decreased GFR 90 2 Kidney damage with mild decrease in GFR 60-89 3 Moderate decrease in GFR 30-59 4 Severe decrease in GFR 15-29 5 Kidney failure <15 (or dialysis) 53 * SERUM LEVELS OF PSA MEASURED USING THE [employer] ACCESS HYBRITECH IMMUNOASSAY SHOULD NOT BE INTERPRETED ABSOLUTE EVIDENCE OF THE PRESENCE OR ABSENCE OF DISEASE. THE PSA VALUE SHOULD BE USED IN CONJUNCTION WITH OTHER PERTINENT CLINICAL DIAGNOSTIC PROCEDURES. A PSA value in the range of 0.1 to 0.6 ng/ml is indeterminate if being used as an indicator of recurrent or residual disease. . 54 CHOLESTEROL INTERPRETATION: Desirable: Less than 200 MG/DL Borderline-High Risk: 200-239 MG/DL High-Risk: 240 MG/DL and over 55 HDL INTERPRETATION: Undesirable: High Risk: Less than 40 MG/DL Desirable: Low Risk: Greater than 60 MG/DL 56 LDL INTERPRETATION: Low Risk Optimal Level: LDL Less than 100 MG/DL Near or Above Optimal: LDL 100-129 MG/DL Borderline High Risk: LDL 130-159 MG/DL High Risk: LDL 160-189 MG/DL Very High Risk: LDL Greater than 189 MG/DL 57 THERAPEUTIC TARGET FOR THE TREATMENT OF DIABETES MELLITUS PATIENTS IS <7% HBA1C, AND IN SELECTIVE PATIENTS <6.0%. PLEASE REFER TO [place] [employer] DIABETIC CARE GUIDELINES FOR FURTHER INFORMATION. 58 Anion gap measurement may be of limited value in the presence of any alkalosis, especially in a combined acid base disorder. . 59 Note change in reference range as of 02/29/08. The change was based on recommendations from the [place] [employer]. 60 Please note change in reference range effective 07 . 61 Because ethnic data is not always readily available, this report includes an eGFR for both -Americans and non- Americans. The National Kidney Disease Education Program (NKDEP) does not endorse the use of the MDRD equation for patients that are not between the ages of 18 and 70, are , have extremes of body size, muscle mass, or nutritional status, or are non- or non-. According to the National Kidney Foundation, irrespective of diagnosis, the stage of the disease is based on the level of kidney function: Stage Description GFR(mL/min/1.73 m(2)) 1 Kidney damage with normal or decreased GFR 90 2 Kidney damage with mild decrease in GFR 60-89 3 Moderate decrease in GFR 30-59 4 Severe decrease in GFR 15-29 5 Kidney failure <15 (or dialysis) 62 THERAPEUTIC TARGET FOR THE TREATMENT OF DIABETES MELLITUS PATIENTS IS <7% HBA1C, AND IN SELECTIVE PATIENTS <6.0%. PLEASE REFER TO [place] [employer] DIABETIC CARE GUIDELINES FOR FURTHER INFORMATION. 63 Anion gap measurement may be of limited value in the presence of any alkalosis, especially in a combined acid base disorder. . 64 Note change in reference range as of 02/29/08. The change was based on recommendations from the [place] [employer]. 65 Please note change in reference range effective 07 . 66 MICROALBUMINURIA IN A RANDOM SAMPLE IS DEFINED : MICROALBUMIN/CREATININE RATIO OF 30-299 ug/mg. . 67 Anion gap measurement may be of limited value in the presence of any alkalosis, especially in a combined acid base disorder. . 68 Please note change in reference range effective 07 . 69 THERAPEUTIC TARGET FOR THE TREATMENT OF DIABETES MELLITUS PATIENTS IS <7% HBA1C, AND IN SELECTIVE PATIENTS <6.0%. PLEASE REFER TO [place] [place] DIABETIC CARE GUIDELINES FOR FURTHER INFORMATION. 70 ---- RUN DATE: 01/25/08 [facility] NMI LIVE PAGE 1 RUN TIME: 1524 Specimen Inquiry RUN USER: INTERFACE -- Name: OLGA LIDIA SCOTT Status: REG REF Re01/24/08 Age/Sex: 72/M Unit#: [id number] Location: [facility] : 35 -- Specimen: [id number] Spec Date: 01/24/[address]: Satinder marie MD Spec Type: SURGICAL P Received: 01/24/08-1247 Copies to: Osvaldo Arriaga MD SPECIMEN 1) BIOPSY HEPATIC FLEXURE POLYP 2) COLON POLYP AT 25 CM. HISTORY POST-OP DIAGNOSIS: Two polyps CLINICAL INFORMATION: Follow up to previous polyps; patient denies family history of colon carcinoma; patient states occasional blodd in stool when constipa fang GROSS DESCRIPTION 1) The specimen is received in formalin labelled Olga Lidia Kintner, Biopsy Hepatic Flexure Polyp, and consists of a morris, soft tissue fragment measuring 0.3 x 0.3 x 0.2 cm. Submitted entirely, one cassette. 2) The specimen is received in formalin labelled Olga Lidia Kintner, Colon Polyp at 25 cm., and consists of a polypoid, morris-brown fragment measuring 0.8 x 0.5 x 0.3 cm. Submitted entirely, one cassette. DIAGNOSIS 1) Hepatic flexure, biopsy: A) Tubular adenoma. B) No high grade dysplasia or malignancy. 2) Colon, 5.5 cm., biopsy: A) Tubular adenoma. B) No high grade dysplasia or malignancy. Signed Electronically by: GIDEON MANN MD 01/25/08 1524 -- -- DEPARTMENT OF PATHOLOGY, [address] [place] [address] [facility] Permit #[id number] Gideon Mann M.D. Director of Laboratories -- 71 TEST RESULT RETURNED FROM REFERENCE LABORATORY AND HARDCOPY SENT TO PHYSICIAN(S) OFFICE. 72 TEST RESULT RETURNED FROM REFERENCE LABORATORY AND HARDCOPY SENT TO PHYSICIAN(S) OFFICE. 73 TEST RESULT RETURNED FROM REFERENCE LABORATORY AND HARDCOPY SENT TO PHYSICIAN(S) OFFICE. 74 Specific serologic response to B. burgdorferi is not detected, but cannot rule out early infection during which low or undetectable antibody levels to B. burgdorferi may be present. If clinically indicated, a new serum specimen should be submitted in 7-14 days. Western blot should only be ordered on specimens that are positive or equivocal by a FDA-licensed Lyme disease antibody screening test (e.g., EIA). CDC criteria require >=5 bands for IgG or >=2 bands for IgM for the Western blot to be considered positive. Please note changes in methodology and reporting effective 12/28/2007. Test Performed by: [facility] Dpt of Lab Med and Pathology [address] [place] [id number] Project Safety Manager: Winston Mcdaniels III, M.D. TEST RESULT RETURNED FROM REFERENCE LABORATORY AND HARDCOPY SENT TO PHYSICIAN(S) OFFICE. 75 CHOLESTEROL INTERPRETATION: Desirable: Less than 200 MG/DL Borderline-High Risk: 200-239 MG/DL High-Risk: 240 MG/DL and over 76 HDL INTERPRETATION: Undesirable: High Risk: Less than 40 MG/DL Desirable: Low Risk: Greater than 60 MG/DL 77 LDL INTERPRETATION: Low Risk Optimal Level: LDL Less than 100 MG/DL Near or Above Optimal: LDL 100-129 MG/DL Borderline High Risk: LDL 130-159 MG/DL High Risk: LDL 160-189 MG/DL Very High Risk: LDL Greater than 189 MG/DL 78 Anion gap measurement may be of limited value in the presence of any alkalosis, especially in a combined acid base disorder. . 79 Please note change in reference range effective 07 . 80 * SERUM LEVELS OF PSA MEASURED USING THE [employer] ACCESS HYBRITECH IMMUNOASSAY SHOULD NOT BE INTERPRETED ABSOLUTE EVIDENCE OF THE PRESENCE OR ABSENCE OF DISEASE. THE PSA VALUE SHOULD BE USED IN CONJUNCTION WITH OTHER PERTINENT CLINICAL DIAGNOSTIC PROCEDURES. A PSA value in the range of 0.1 to 0.6 ng/ml is indeterminate if being used as an indicator of recurrent or residual disease. . 81 ---- RUN DATE: 01/26/07 [facility] NMI LIVE PAGE 1 RUN TIME: 1607 Specimen Inquiry RUN USER: INTERFACE [id number] OLGA LIDIA SCOTT/Lashay <REG REF 01/24> ([id number]) Dario Elizondo MD -- Specimen: [id number] SOUT Spec Date: 01/24/[address]: Dario dasilva MD Spec Type: SURGICAL P Received: 01/25/07-5140 Copies to: Osvaldo Arriaga MD SPECIMEN 1) LEFT LOBE PROSTATE BIOPSY APEX (APEX 3) 2) LEFT LOBE PROSTATE BIOPSY BASE (BASE 3) 3) RIGHT LOBE PROSTATE BIOPSY APEX (APEX 3) 4) RIGHT LOBE PROSTATE BIOPSY BASE (BASE 4) HISTORY PRE-OP DIAGNOSIS: Moderate enlarged prostate; nodule right lobe. PSA - 6 1 GROSS DESCRIPTION 1) The specimen is received in formalin labelled Olga Lidia Kintner, Left Prostate Lobe Jber and consists of three, morris, soft tissue cores measuring 1.5 cm., 1.4 cm., and 1.7 x 0.1 cm. Submitted entirely, one cassette. 2) The specimen is received in formalin labelled Olga Lidia [facility], Marina Campustner, Left Prostate Lobe Base and consists of three, morris, soft tissue cores measuring 1.7 cm., 1.7 cm., and 1.8 x 0.1 cm. Submitted entirely, one cassette. 3) The specimen is received in formalin labelled Olga Lidia Mictner, Right Prostate Lobe Jber and consists of three, morris, soft tissue cores measuring 1.4 cm., 1.3 cm., and 1.9 x 0.1 cm. Submitted entirely, one cassette. 4) The specimen is received in formalin labelled Olga Lidia Mictner, Right Prostate Lobe Base and consists of three, morris, soft tissue cores measuring 1.3 cm., 1.5 cm., and 1.7 x 0.1 cm. Submitted entirely, one cassette. DIAGNOSIS 1) Prostate, left apex, core biopsies - A) Prostatic tissue with marked acute and chronic inflammation. B) No evidence of neoplasia. 2) Prostate, left base, core biopsies - A) Benign prostate tissue with partial atrophy and chronic inflammation. B) No evidence of neoplasia. 3) Prostate, right apex, core biopsies - A) Prostatic tissue with marked acute and chronic inflammation. B) No evidence of neoplasia. 4) Prostate, right base, core biopsies - A) Prostatic tissue with marked acute and chronic inflammation. -- DEPARTMENT OF PATHOLOGY, [address] [place] [address] [facility] Permit #[id number] Dean Jacques II, M.D. Director Hortnesia Villalta irector -- -- RUN DATE: 01/26/07 [facility] NMI LIVE PAGE 2 RUN TIME: 1607 Specimen Inquiry RUN USER: INTERFACE -- SPEC #: [id number] PATIENT: OLGA LIDIA SCOTT #[id number] (Continued) -- DIAGNOSIS (Continued) B) No evidence of neoplasia. Signed Electronically by: GIDEON MANN MD 01/26/07 1607 -- -- DEPARTMENT OF PATHOLOGY, [address] [place] [address] [facility] Permit #[id number] Dean Jacques II, M.D. Director Gideon Mann M.D. Airbrush Artist D irector -- Procedures Date Code Description Status 03/10/2016 89437 EKG, at Least 12 Leads w/Interpretation and Report Completed 04/24/2010 [id number] EKG, at Least 12 Leads w/Interpretation and Report Completed 01/24/2008 [id number] Colonoscopy Completed 01/03/2008 96237 EKG, at Least 12 Leads w/Interpretation and Report Completed Encounters Type Date Location Provider Dx Diagnosis Office Visit 03/02/2018 Main Office Osvaldo Arriaga M.D. Z00.00 Encntr for general 9:30a adult medical exam w/o abnormal findings E11.9 Type 2 diabetes mellitus without complications E78.00 Pure hypercholesterolemia, unspecified M10.9 Gout, unspecified N18.9 Chronic kidney disease, unspecified Z23 Encounter for immunization Office Visit 03/16/2017 8:45a Main Office Osvaldo Arriaga M.D. Z00.00 Encntr for general adult medical exam w/o abnormal findings E11.9 Type 2 diabetes mellitus without complications M10.9 Gout, unspecified M54.9 Dorsalgia, unspecified F52.21 Male erectile disorder G60.8 Other hereditary and idiopathic neuropathies Z23 Encounter for immunization Office Visit 04/14/2016 11:45a Main Office Osvaldo Arriaga J06.9 Acute upper M.D. respiratory infection, unspecified Office Visit 03/10/2016 9:30a Main Office Osvaldo Arriaga Z00.00 Encntr for general M.D. adult medical exam w/o abnormal findings E11.9 Type 2 diabetes mellitus without complications M10.9 Gout, unspecified F52.21 Male erectile disorder E87.5 Hyperkalemia Office Visit 02/25/2016 9:30a Main Office Osvaldo Arriaga M.D. M54.9 Dorsalgia, unspecified Office Visit 12/17/2015 3:15p Main Office Osvaldo Arriaga M.D. M54.9 Dorsalgia, unspecified Office Visit 12/22/2013 10:15a Main Office [place], 682.8 Cellulitis & Abscess Hortensia, R.Aman. Other Spec Sites Office Visit 03/17/2011 9:30a Main Office Alison Carvalho 729.2 Neuralgia Neuritis & Hortensia Castro Radiculitis Unspec V04.81 Need For Prophylactic Vaccination & Inoculation/Influenza Office Visit 04/24/2010 11:00a Main Office Osvaldo Arriaga M.D. V70.0 Examination General Medical Routine AT [facility] 250.00 Diabetes Mellitus W/O Compl Type II Or Unspec Controlled 796.2 Blood Pressure Reading Elevated W/O Hypertension 274.9 Gout Unspec V12.72 History Personal Colonic Polyps 272.0 Hypercholesterolemia Pure V04.81 Need For Prophylactic Vaccination & Inoculation/Influenza Office Visit 01/29/2010 10:45a Main Office Osvaldo Arriaga M.D. 250.00 Diabetes Mellitus W/O Compl Type II Or Unspec Controlled 796.2 Blood Pressure Reading Elevated W/O Hypertension 274.9 Gout Unspec 724.2 Lumbago V12.72 History Personal Colonic Polyps Office Visit 03/28/2009 10:15a Main Office [place], 250.00 Diabetes Mellitus Hortensia, RDanica W/O Compl Type II Or Unspec Controlled 724.2 Lumbago 702.0 Actinic Keratosis 682.9 Cellulitis & Abscess Unspec Site Office Visit 01/23/2009 10:45a Main Office Osvaldo Arriaga M.D. 250.00 Diabetes Mellitus W/O Compl Type II Or Unspec Controlled 724.2 Lumbago 702.0 Actinic Keratosis 682.9 Cellulitis & Abscess Unspec Site Office Visit 05/01/2008 11:30a Main Office Osvaldo Arriaga M.D. 250.00 Diabetes Mellitus W/O Compl Type II Or Unspec Controlled 724.2 Lumbago Office Visit 04/04/2008 9:30a Main Office Osvaldo Arriaga M.D. 724.2 Lumbago Office Visit 03/19/2008 9:30a Main Office Osvaldo Arriaga M.D. 250.00 Diabetes Mellitus W/O Compl Type II Or Unspec Controlled Office Visit 02/06/2008 9:45a Main Office Osvaldo Arriaga M.D. 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 724.2 Lumbago Office Visit 02/07/2007 2:45p Main Office Osvaldo Arriaga M.D. 729.5 Pain In Limb Office Visit 02/06/2007 11:30a Main Office Tracey Chamberlain 729.5 Pain In Limb [facility] Office Visit 01/30/2007 3:15p Main Office Alison Carvalho 355.1 Meralgia Hortensia Castro Paresthetica 110.3 Dermatophytosis Groin & Perianal Area Office Visit 12/08/2006 2:15p Main Office Osvaldo Arriaga M.D. 601.0 Prostatitis Acute Plan of Treatment Future Appointment(s):02/28/2019 8:00 am - [facility] at Main Jdbrkg0203/07/2019 8:45 am - Osvaldo Arriaga M.D. at Main Fxgxqs2012/28/2018 - Osvaldo Arriaga M.D.H00.015 Hordeolum externum left lower eyelidNew Medication: Erythromycin 5 mg/GM - apply 1 application into the lower eyelid of affected eye 4 times per day for10 days for infection ( Do not fill Rx until patient calls )
--- NOTE | 2019-02-08 10:24 | ED ---
HPI Chest Pain - HPI Summary HPI Summary: An 83 y/o male presents to [facility] with a chief complaint of chest pain since waking up this morning. At triage he rated his pain as a 3/10 in severity. He says that his pain runs across his shoulders. He denies any SOB and denies any aggravating symptoms. He describes his pain as an aching pain. He does not that his feet have been swelling a little recently. He also notes that his right forearm is a little sore. He has a Hx of DM. - History of Current Complaint Chief Complaint: EDChestPainROMI Time Seen by Provider: 02/08/19 10:16 Hx Obtained From: Patient Onset/Duration: Started Hours Ago, Still Present Timing: Constant, Lasting Hours Initial Severity: Mild Current Severity: Mild Pain Intensity: 3 Pain Scale Used: 0-10 Numeric Chest Pain Location: Discrete at: - runs across chest between both shoulders Chest Pain Radiates: Yes Chest Pain Radiates To:: Shoulder Character: Dull/Aching Aggravating Factor(s): Nothing Alleviating Factor(s): Nothing Associated Signs and Symptoms: Positive: Swelling - feet, Other: - shoulder pain. Negative: Shortness of Breath, Fever - Allergy/Home Medications Allergies/Adverse Reactions: Allergies Allergy/AdvReac Type Severity Reaction Status Date / Time No Known Allergies Allergy Verified 02/08/19 10:14 Home Medications: Home Medications Aspirin [Aspirin EC] 81 mg PO DAILY 02/08/19 [History Confirmed 02/08/19] Cholecalciferol TAB* [Vitamin D TAB*] 400 unit PO DAILY 02/08/19 [History Confirmed 02/08/19] Cyanocobalamin TAB* [Vitamin B12 TAB*] 500 mcg PO DAILY 02/08/19 [History Confirmed 02/08/19] Losartan Potassium [Cozaar] 25 mg PO DAILY 02/08/19 [History Confirmed 02/08/19] Multivitamins/Minerals TAB* [Theragran/minerals TAB*] 1 tab PO DAILY 02/08/19 [ History Confirmed 02/08/19] Sildenafil Citrate [Viagra] 100 mg PO DAILY PRN 02/08/19 [History Confirmed 07/29] Sitagliptin Phosphate [Januvia] 100 mg PO DAILY 02/08/19 [History Confirmed 07/29] Tadalafil [Cialis] 20 mg PO DAILY 02/08/19 [History Confirmed 02/08/19] PMH/Surg Hx/FS Hx/Imm Hx Endocrine/Hematology History: Reports: Hx Diabetes Sensory History: Denies: Hx Deafness EENT History: Denies: Hx Deafness Infectious Disease History: No Infectious Disease History: Denies: Traveled Outside the [place] in Last 30 Days - Family History Known Family History: Positive: Cardiac Disease - brother - Social History Alcohol Use: Daily Hx Substance Use: No Substance Use Type: Reports: None Smoking Status (MU): Former Smoker Review of Systems Negative: Fever Positive: Chest Pain Negative: Shortness Of Breath Positive: Arthralgia - shoulder pain, Edema - some bilateral All Other Systems Reviewed And Are Negative: Yes Physical Exam - Summary Physical Exam Summary: Appearance: The patient is well-nourished in no acute distress and in no acute pain. Skin: The skin is warm and dry and skin color reflects adequate perfusion. HEENT: The head is normocephalic and atraumatic. The pupils are equal and reactive. The conjunctivae are clear and without drainage. Nares are patent and without drainage. Mouth reveals moist mucous membranes and the throat is without erythema and exudate. The external ears are intact. The ear canals are patent and without drainage. The tympanic membranes are intact. Neck: The neck is supple with full range of motion and non-tender. There are no carotid bruits. There is no neck vein distension. Respiratory: Chest is non-tender. Lungs are clear to auscultation and breath sounds are symmetrical and equal. Cardiovascular: Heart is regular rate and rhythm. There is no murmur or rub auscultated. Pulses are symmetrical and equal. Abdomen: The abdomen is soft and non-tender. There are normal bowel sounds heard in all four quadrants and there is no organomegaly palpated. Musculoskeletal: There is no back tenderness noted. Extremities are non-tender with full range of motion. There is good capillary refill. There is very mild bilateral pitting edema. Neurological: Patient is alert and oriented to person, place and time. The patient has symmetrical motor strength in all four extremities. Cranial nerves are grossly intact. Deep tendon reflexes are symmetrical and equal in all four extremities. Psychiatric: The patient has an appropriate affect and does not exhibit any anxiety or depression. Triage Information Reviewed: Yes Vital Signs On Initial Exam: Initial Vitals Temp Pulse Resp BP Pulse Ox 97.9 F 67 18 185/86 99 02/08/19 10:12 02/08/19 10:12 02/08/19 10:12 02/08/19 10:12 02/08/19 10:12 Vital Signs Reviewed: Yes Diagnostics - Vital Signs Vital Signs Temp Pulse Resp BP Pulse Ox 02/08/19 10:12 97.9 F 67 18 185/86 99 - Laboratory Result Diagrams: 02/08/19 10:26 02/08/19 10:26 Lab Statement: Any lab studies that have been ordered have been reviewed, and results considered in the medical decision making process. - Radiology CXR Radiology Interpretation Completed By: Radiologist Summary of Radiographic Findings: NO ACTIVE CARDIOPULMONARY DISEASE. ED physician has reviewed this imaging report. - CT cervical spine CT Interpretation Completed By: Radiologist Summary of CT Findings: 1. OSTEOPENIA. 2. DEGENERATIVE DISC DISEASE AND OSTEOARTHRITIS. 3. THERE IS MULTILEVEL NEUROFORAMINAL NARROWING DESCRIBED ABOVE. 4. THERE IS MILD NARROWING OF THE CENTRAL CANAL AT C5-C6. ED physician has reviewed this imaging report. - EKG 10:09 Cardiac Rate: NL - 62 bpm EKG Rhythm: Sinus Rhythm Summary of EKG Findings: Normal sinus rhythm, normal ST, no ectopy, no STEMI. Re-Evaluation - Re-Evaluation First Eval Re-Evaluation Time: 11:31 Change: Improved Comment: Pt feels better and his pain is gone Chest Pain Course/Dx - Course Course Of Treatment: Mr. Villalobos presented with several hours of bilateral shoulder pain coming around into his proximal anterior chest. He described it as an ache. My clinical impression was that this was probably radicular. A CT scan of his neck did reveal some 5/6 cord compression as well as significant DDD. Nevertheless she was worked up for other etiologies and an EKG, chest x- ray and labs including delayed troponin were all negative. I recommended symptomatic treatment and follow-up with his PCP. - Diagnoses Provider Diagnoses: Cervical radiculopathy Discharge - Sign-Out/Discharge Documenting (check all that apply): Patient Departure - DC Patient Received Moderate/Deep Sedation with Procedure: No - Discharge Plan Condition: Stable Disposition: HOME Patient Education Materials: Cervical Radiculopathy (ED) Referrals: Osvaldo Arriaga MD [Primary Care Provider] - (2-3 days) Additional Instructions: Follow up with your PCP in 2-3 days. Return to the emergency department if you experience any new or worsening symptoms. - Billing Disposition and Condition Condition: STABLE Disposition: Home - Attestation Statements Document Initiated by Mars: Yes Documenting Scribe: Estevan Weeks Provider For Whom Mars is Documenting (Include Credential): Chaparro Womack MD Scribe Attestation: IEstevan, scribed for Chaparro Womack MD on 02/08/19 at 1758. Scribe Documentation Reviewed: Yes Provider Attestation: The documentation as recorded by the Estevan chowdhury accurately reflects the service I personally performed and the decisions made by me, Chaparro Womack MD Status of Scribe Document: Viewed
[2019-02-08 10:39] LABS: ABS Eosinophils 0.1 10^3/ul (0-0.6); ABS Lymphocytes 1.2 10^3/ul (1.0-4.8); ABS Monocytes 0.5 10^3/ul (0-0.8); ABS Neutrophils 3.8 10^3/ul (1.5-7.7); Eosinophil % 1.7 %; Hematocrit 39 % (42-52); Hemoglobin 13.1 g/dL (14.0-18.0); Lymphocyte % 21.6 %; Mean Corpuscular HGB Conc 34 g/dL (31-36); Mean Corpuscular Hemoglobin 31 pg (27-31); Mean Corpuscular Volume 92 fL (80-94); Mean Platelet Volume 7.3 fL (7.4-10.4); Platelet Count 203 10^3/uL (150-450); Red Cell Distribution Width 14 % (10-15); White Blood Count 5.7 10^3/uL (3.5-10.8)
[2019-02-08 10:52] LABS: INR 1.02 (0.82-1.09)
[2019-02-08 11:02] LABS: Albumin 3.9 g/dL (3.2-5.2); Albumin/Globulin Ratio 1.3 (1-3); BUN/Creatinine Ratio 14.5 (8-20); Calcium 9.1 mg/dL (8.6-10.3); EGFR Non-African American 59.5 (>60); Globulin 3.1 g/dL (2-4); Potassium 4.3 mmol/L (3.5-5.0); Total Bilirubin 0.7 mg/dL (0.2-1.0)
[2019-02-08 11:04] LABS: Troponin I 0.01 ng/mL (<0.04)
[2019-02-08 14:09] VITALS: BP 161/95
== END | disposition home or self-care (01) ==
LOC: ED 10:08
DX: M54.12 Radiculopathy, cervical region (principal); E11.9 Type 2 diabetes mellitus without complications; Z79.82 Long term (current) use of aspirin; Z79.899 Other long term (current) drug therapy; Z79.84 Long term (current) use of oral hypoglycemic drugs; Z87.891 Personal history of nicotine dependence; M50.30 Other cervical disc degeneration, unspecified cervical region; M47.892 Other spondylosis, cervical region
CPT/HCPCS: 36415; 71045; 72125; 80053; 83605; 84484; 85025; 85610; 93005; 99283